=== PATIENT | female | born 1975 | race Caucasian/White ===

== ENCOUNTER 2017-07-07 12:50 | Emergency (ER) | payer OTHER ==
[2017-07-07 13:03] VITALS: BP 150/72; PULSE 75; TEMP 98.6; BMI 44.9
[2017-07-07] MEDS ORDERED: KETOROLAC TROMETHAMINE 60 MG/2 ML VIAL IM ONE (13:36)
[2017-07-07] MEDS ORDERED: KETOROLAC TROMETHAMINE 60 MG/2 ML VIAL ONE (13:40)
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
== END 2017-07-07 13:50 | disposition home or self-care (01) ==
LOC: JERFT 12:50
PROC: 3E0233Z Introduction of Anti-inflammatory into Muscle, Percutaneous Approach (ICD-10-PCS; principal; 2017-07-07)
DX: S13.4XXA Sprain of ligaments of cervical spine, initial encounter (principal); V43.52XA Car driver injured in collision with other type car in traffic accident, initial encounter; Y92.412 Parkway as the place of occurrence of the external cause; Y93.89 Activity, other specified; Y99.8 Other external cause status
CPT/HCPCS: 99281-25

== ENCOUNTER 2019-01-25 08:36 | Day surgery (SDC) | payer OTHER ==
[~2019-01-25 08:36] MED LIST: FERRIC CARBOXYMALTOSE 750 MG in SODIUM CHLORIDE 250 ML IVPB ONE
[2019-01-25] MEDS ORDERED: FERRIC CARBOXYMALTOSE 750 MG in SODIUM CHLORIDE 250 ML IVPB ONE (09:30)
[2019-01-25 09:47] VITALS: BP 108/57; PULSE 68; TEMP 98.5
== END 2019-01-25 10:35 | disposition home or self-care (01) ==
LOC: JINFUSION 08:36
PROVIDERS: ATTEND Family Medicine
PROC: 3E033GC Introduction of Other Therapeutic Substance into Peripheral Vein, Percutaneous Approach (ICD-10-PCS; principal; 2019-01-25)
DX: D64.9 Anemia, unspecified (principal)
CPT/HCPCS: 81025; 96365; J1439

== ENCOUNTER 2019-02-01 08:12 | Day surgery (SDC) | payer OTHER ==
[2019-02-01] MEDS ORDERED: FERRIC CARBOXYMALTOSE 750 MG in SODIUM CHLORIDE 250 ML IVPB ONE (08:30)
[2019-02-01 09:47] VITALS: TEMP 97.9
[2019-02-01 10:11] VITALS: BP 109/64; PULSE 74
== END 2019-02-01 10:05 | disposition home or self-care (01) ==
LOC: JINFUSION 08:12
PROVIDERS: ATTEND Family Medicine
PROC: 3E033GC Introduction of Other Therapeutic Substance into Peripheral Vein, Percutaneous Approach (ICD-10-PCS; principal; 2019-02-01)
DX: D50.9 Iron deficiency anemia, unspecified (principal)
CPT/HCPCS: 96365; J1439

== ENCOUNTER 2024-06-18 15:02 | Day surgery (SDC) | payer OTHER ==
[2024-06-18] MEDS: FERRIC CARBOXYMALTOSE 750 MG in SODIUM CHLORIDE 250 ML IVPB ONE (15:20)
[2024-06-18 16:36] VITALS: RESP 18; TEMP 98.2
[2024-06-18 16:40] VITALS: BP 113/56; PULSE 68
== END 2024-06-18 16:30 | disposition home or self-care (01) ==
LOC: JONCNONCHE 15:02
PROVIDERS: ATTEND Internal Medicine Hematology & Oncology
PROC: 3E033GC Introduction of Other Therapeutic Substance into Peripheral Vein, Percutaneous Approach (ICD-10-PCS; principal; 2024-06-18)
DX: D50.9 Iron deficiency anemia, unspecified (principal)
CPT/HCPCS: 96372; J1439